=== PATIENT | female | born 1975 | race Caucasian/White ===

== ENCOUNTER → 2017-11-25 | Outpatient (REF) | payer BC, OTHER ==
[2017-11-25 15:10] LABS: INFLUENZA A AMPLIFICATION POSITIVE (NEGATIVE); INFLUENZA B AMPLIFICATION NEGATIVE (NEGATIVE); RSV AMPLIFICATION NEGATIVE (NEGATIVE)
== END ==
LOC: M LAB REF 14:09
DX: Z11.59 Encounter for screening for other viral diseases (principal)
CPT/HCPCS: 87631

== ENCOUNTER → 2017-11-26 | Outpatient (REF) | payer BC, OTHER ==
[2017-11-29 00:06] LABS: TISSUE TRANSGLUTAMINASE IgA <2 U/mL (0-3)
[2017-11-29 00:06] LABS: ENDOMYSIAL ABY IgA Negative (Negative)
== END ==
LOC: M LAB REF 17:50
DX: R19.7 Diarrhea, unspecified (principal)
CPT/HCPCS: 86255

== ENCOUNTER → 2017-12-22 | Outpatient (REF) | payer OTHER ==
[2017-12-22 13:05] LABS: SLIDE REVIEW Report; SOURCE PERIPHERAL SMEAR
[2017-12-22 13:07] LABS: REASON FOR REVIEW OTHER
== END ==
LOC: M LAB REF 12:08
DX: D72.819 Decreased white blood cell count, unspecified (principal)

== ENCOUNTER 2017-12-24 11:05 | Day surgery (SDC) | payer BC, OTHER ==
[~2017-12-24 11:05] MED LIST: LIDOCAINE 2% MDV 20 ML VIAL As Ordered; PROPOFOL 200 MG/20 ML VIAL As Ordered
[2017-12-24] MEDS: NS 1,000 ML IV (11:37)
[2017-12-24] MEDS ORDERED: PROPOFOL 200 MG/20 ML VIAL As Ordered ×2 (12:43→12:45)
== END 2017-12-24 13:36 | disposition home or self-care (01) ==
LOC: M OPP 11:05
DX: Z12.11 Encounter for screening for malignant neoplasm of colon (principal); Z80.0 Family history of malignant neoplasm of digestive organs; Z83.71 Family history of colonic polyps; K63.89 Other specified diseases of intestine; D72.818 Other decreased white blood cell count; F32.9 Major depressive disorder, single episode, unspecified; R06.02 Shortness of breath; Z88.0 Allergy status to penicillin; Z88.3 Allergy status to other anti-infective agents
CPT/HCPCS: 45380

== ENCOUNTER → 2019-05-23 | Outpatient (REF) | payer OTHER ==
[2019-05-23 13:51] LABS: AMORPHOUS SEDIMENT MODERATE (NEGATIVE); APPEARANCE, URINE CLOUDY (CLEAR); BACTERIA, URINE AUTO 1+ (NEGATIVE); BILIRUBIN, URINE AUTO NEGATIVE (NEGATIVE); BLOOD, URINE BLOOD 3+ (NEGATIVE); COLOR, URINE YELLOW (YELLOW); GLUCOSE, URINE (UA) AUTO NEGATIVE (NEGATIVE); KETONE, URINE AUTO NEGATIVE (NEGATIVE); LEUKOCYTE ESTERASE, URINE AUTO 3+ (NEGATIVE); MUCUS, URINE SMALL (NEGATIVE); NITRITE, URINE AUTO NEGATIVE (NEGATIVE); PROTEIN, URINE AUTO 1+ mg/dL (NEGATIVE); RBC, URINE AUTO 66 /HPF (0-3); SPECIFIC GRAVITY URINE AUTO 1.015 (1.002-1.035); SQUAMOUS EPITHELIAL CELL UR AU 2 /HPF (0-6); TRANSITIONAL EPITHELIAL AUTO 2 /HPF; UROBILINOGEN, URINE AUTO 0.2 mg/dL (0.0-2.0); WBC, URINE AUTO TNTC /HPF (0-3)
== END ==
LOC: M LAB REF 12:52
PROVIDERS: ATTEND Physician Assistant
DX: N39.0 Urinary tract infection, site not specified (principal)

== ENCOUNTER → 2020-06-25 | Outpatient (REF) | payer OTHER | LOC: M LAB REF 11:14 | PROVIDERS: ATTEND Internal Medicine | DX: R19.7 Diarrhea, unspecified (principal) ==

== ENCOUNTER → 2020-07-25 | Outpatient (CLI) | payer BC ==
--- NOTE | 2020-07-25 09:28 | REPMRS ---
Patient History The patient states she had a clinical breast exam in June 2020. Family history of colorectal cancer at age 56 in mother. Took hormonal contraceptives beginning at age 20. 3D TOMOSYNTHESIS WAS PERFORMED. [facility] [address] lifetime risk for breast cancer is 9.2%. Peter burkett Digital Woman Screen Mammo: July 25, 2020 - Exam #: [id number] Bilateral CC and MLO view(s) were taken. Technologist: Lou Brooks, RT No prior studies available for comparison. FINDINGS: The breast tissue is extremely dense which could obscure a lesion on mammography. There is a moderate amount of residual fibroglandular tissue which is fairly symmetric. There is no dominant mass, areas of architectural distortion, or clustered microcalcification typical of malignancy. Bilateral breast implants are grossly intact. Assessment: BI-RADS/ACR category 1 mammogram. Negative Mammogram. Recommendation Routine screening mammogram in 1 year (for women over age 40). This mammogram was interpreted with the aid of an FDA-approved computer-aided dectection system. Electronically Signed By: Ramu Neri MD 07/25/20 0928
== END ==
LOC: M WHC 07:36
PROVIDERS: ATTEND Internal Medicine
DX: Z12.31 Encounter for screening mammogram for malignant neoplasm of breast (principal); Z80.0 Family history of malignant neoplasm of digestive organs; Z98.82 Breast implant status

== ENCOUNTER → 2020-11-10 | Outpatient (CLI) | payer OTHER ==
[~2020-11-10] MED LIST changes: +BLAC1CAP2 PO; -LIDOCAINE 2% MDV 20 ML VIAL As Ordered; +PROBCAP14 PO; -PROPOFOL 200 MG/20 ML VIAL As Ordered; +VITMTA PO
== END ==
LOC: M LABSMTC 08:28
PROVIDERS: ATTEND Anesthesiology
DX: Z01.812 Encounter for preprocedural laboratory examination (principal); Z20.822 Contact with and (suspected) exposure to COVID-19

== ENCOUNTER 2020-11-15 10:11 | Day surgery (SDC) | payer BC, OTHER ==
[~2020-11-15] VITALS: Ht 172.7 cm; Wt 75.7 kg
[~2020-11-15 10:11] MED LIST changes: +KETOROLAC 60MG 2ML VIAL As Ordered ONE; +LIDOCAINE 2% 100MG/5ML SDV (FOR ANES.) As Ordered ONE; +LR 1,000 ML IV ONE; +MIDAZOLAM INJ 2MG/2ML VIAL (J2250 PER 1MG) As Ordered ONE; +ONDANSETRON 4MG/2ML VIAL As Ordered ONE; +dexameTHASONE 4 MG/ML 1ML VIAL (J1100 PER 1MG) As Ordered ONE; +fentaNYL 100 MCG/2 ML INJECTION (J3010) As Ordered ONE; +propofoL 200 MG/20 ML VIAL As Ordered ONE
--- OUTSIDE RECORDS SUMMARY | 2020-11-15 10:16 | CCD | Continuity of Care Document ---
Author Padmini Rodriguez MD Organization Unknown Address [address] [place] [address] Phone [phone] Care Team Providers Care Court Collections Officer Name Role Phone Carole Jules Unavailable Problems Description No Information Available Social History Type Date Description Comments Sex Unknown Tobacco Use Start: Unknown Never Smoked Cigarettes Smoking Status Reviewed: 10/23/20 Never Smoked Cigarettes ETOH Use Non-smoker, Occasional Drinker, Non-drug User Tobacco Use Start: Unknown Patient has never smoked Exercise Type/Frequency Does not exercise Allergies, Adverse Reactions, Alerts Active Allergies Reaction Severity Comments Date Augmentin 08/13/2020 Medications Description No Active Medications Immunizations Description No Information Available Vital Signs Date Vital Result Comment 08/13/2020 6:48am BP Systolic 98 mmHg BP Diastolic 62 mmHg Height 67.25 inches 5'7.25" Weight 175.00 lb BMI (Body Mass Index) 27.2 kg/m2 BSA (Body Surface Area) 1.92 m2 Results Test Acquired Date Facility Test Result H/L Range Note Gynecologic Biopsy 09/18/2020 [facility] Gynecologic Biopsy See Results 1 Gynecologic Biopsy SEE IMAGE 1 SPECIME N PART A. Endometrial CLINICAL HX-------- N92.1 Excessive and frequent menstruation with irregular cycle FINAL DIAGNOSIS---- A. Endometrium, biopsy: - Benign proliferative endometrium with glandular and stromal breakdown. - See comment. DIAGNOSIS COMMENT-- A. This endometrial pattern is sometimes seen with anovulatory cycles or with unopposed estrogenic stimulation. Clinical correlation is needed. MICRO DIAGNOSIS---- A. The stain quality is adequate. The microscopic findings are reflected in the diagnosis. GROSS DESCRIPTION-- A. Received in formalin; Designated: "Endometrial (per requisition)" Inventory: Ehrnandez tissue, clotted blood Aggregate dimensions: 2.2 x 1.5 x 0.3 cm The specimen is submitted entirely as (A1). Procedures Date Code Description Status 09/18/2020 58125 Injection, Anesthetic Agent,Para cervical Block Completed 09/18/2020 42313 Hysteroscopy, With Biopsy With/O r Without D&C Completed Medical Devices Description No Information Available Encounters Type Date Location Provider Dx Diagnosis Office Visit 10/23/2020 8:45a [facility] foil operator Mikaela Rooney MD N9 2.1 Excessive and frequent menstruation with irregular cycle N94.4 Primary dysmenorrhea Office Visit 10/22/2020 11:45a [facility] foil operator Mikaela Rooney MD N9 2.1 Excessive and frequent menstruation with irregular cycle N94.4 Primary dysmenorrhea Office Visit 08/13/2020 10:30a [facility] foil operator Mikaela Rooney MD N9 2.1 Excessive and frequent menstruation with irregular cycle N94.4 Primary dysmenorrhea R93.89 Abnormal findings on dx imag ing of ot body structures Z87.410 Personal history of cervical dysplasia Assessments Date Code Description Provider 10/23/2020 N92.1 Excessive and frequent menstruat ion with irregular cycle Mikaela Rooney MD 10/23/2020 N94.4 Primary dysmenorrhea Shelby Rooney MD 10/22/2020 N92.1 Excessive and frequent menstruat ion with irregular cycle Mikaela Rooney MD 10/22/2020 N94.4 Primary dysmenorrhea Shelby Rooney MD 09/18/2020 N92.1 Excessive and frequent menstruat ion with irregular cycle Mikaela Rooney MD 09/18/2020 N94.4 Primary dysmenorrhea Shelby Rooney MD 09/18/2020 R93.89 Abnormal findings on diagnostic imaging of other specified body structures Mikaela Rooney MD 08/13/2020 N92.1 Excessive and frequent menstruat ion with irregular cycle Mikaela Rooney MD 08/13/2020 N94.4 Primary dysmenorrhea Shelby Rooney MD 08/13/2020 R93.89 Abnormal findings on diagnostic imaging of other specified body structures Mikaela Rooney MD 08/13/2020 Z87.410 Personal history of cervical dys plasia Mikaela Rooney MD Plan of Treatment Future Appointment(s):* 12/10/2020 2:30 pm - Mikaela Rooney MD at [facility] foil operator * 11/15/2020 9:30 am - Mikaela Rooney MD at [facility] Or 10/23/2020 - Mikaela Rooney MD* N92.1 Excessive and frequent menstruation with irregular cycle * N94.4 Primary dysmenorrhea Functional Status Description No Information Available Mental Status Description No Information Available Referrals Description No Information Available
--- OUTSIDE RECORDS SUMMARY | 2020-11-15 10:16 | CCD | Continuity of Care Document ---
Author Author Padmini SANDOVAL Organization Unknown Address [address] [address] Phone [phone] Care Team Providers Care Fixer Supervisor Name Role Phone Carole Sandoval DO AUTM Unavailable Problems Description No Information Available Social History Type Date Description Comments Sex Unknown ETOH Use Rarely consumes alcohol Tobacco Use Start: Unknown Patient has never smoked Allergies, Adverse Reactions, Alerts Active Allergies Reaction Severity Comments Date Augmentin abd cramping, blood in her s tool 11/26/2017 Medications Description No Active Medications Immunizations Description No Information Available Vital Signs Date Vital Result Comment 08/31/2020 11:20am BP Systolic 110 mmHg BP Diastolic 60 mmHg Heart Rate 59 /min Height 67.75 inches 5'7.75" Weight 164.00 lb O2 % BldC Oximetry 99 % RM Air BMI (Body Mass Index) 25.1 kg/m2 06/25/2020 12:56pm BP Systolic 98 mmHg BP Diastolic 62 mmHg Heart Rate 56 /min Height 67.75 inches 5'7.75" Weight 164.00 lb O2 % BldC Oximetry 99 % BMI (Body Mass Index) 25.1 kg/m2 Results Test Acquired Date Facility Test Result H/L Range Note Pap W/RFX High Risk HPV 06/25/2020 [facility] [place] Diagnosis: See Comment: 1 Specimen adequacy: See Comment: 2 Clinician provided Icd10: See Comment: 3 Performed by: See Comment: 4 . . Note: See Comment: 5 Test Methodology: See Comment: 6 . See Comment: 7 Laboratory test finding 06/25/2020 [facility] [place] PDF [id number] SEE IMAGE Comprehensive Chem Profile 06/25/2020 [facility] Tank Builder Supervisor: [place] [address] [phone] Glucose 74 mg/dL 74 - 99 8 BUN 9 mg/dL 7 - 18 Creatinine 0.9 mg/dL 0.6 - 1.3 Sodium 145 mEq/L 136 - 145 Potassium 3.7 mEq/L 3.5 - 5.1 Chloride 106 mEq/L 98 - 107 Carbon Dioxide 30 mEq/L 21 - 32 Calcium 8.6 mg/dL 8.5 - 10.1 Alk. Phosphatase 70 mg/dL 46 - 116 Total Bilirubin 0.5 mg/dL 0.2 - 1.0 Ast (Sgot) 18 U/L 15 - 37 Alt (SGPT) 17 U/L 12 - 78 Albumin 3.7 g/dL 3.4 - 5.0 Total Protein 6.7 g/dL 6.4 - 8.2 A/G Ratio 1.23 CALC 1.00 - 1.90 GFR >= 60 mL/min >60 GFR >= 60 mL/min >60 9 Complete Blood Count 06/25/2020 [facility] Tank Builder Supervisor: Dr Chase Nunn [place], [place] [id number] [phone] WBC 4.5 x10*3/UL 4.1 - 10.9 RBC 3.97 x10*6/UL Low 4.20 - 6.30 Hemoglobin 12.5 g/dL 12.0 - 18.0 Hematocrit 36.5 % Low 37.0 - 51.0 MCV 91.9 fL 80.0 - 97.0 MCH 31.5 pg 26.0 - 32.0 MCHC 34.3 g/dL 31.0 - 38.0 RDW 12.3 % 11.6 - 13.7 PLT 212 x10*3/UL 140 - 440 MPV 8.0 FL 7.8 - 11.0 Lymph % 37.5 % 10.0 - 58.5 Mid % 8.6 % 1.7 - 9.3 Neut % 53.9 % 37.0 - 92.0 Lymph # 1.7 x10*3/UL 0.6 - 4.1 Mid # 0.4 x10*3/UL 0.1 - 0.6 Neut # 2.4 x10*3/UL 2.0 - 7.8 Laboratory test finding 06/25/2020 [facility] Tank Builder Supervisor: [place] [address] [phone] Thyroid Stimulating Hormone 1.45 uIU/mL 0.3 6 - 3.74 Lipid Profile 06/25/2020 [facility] Tank Builder Supervisor: Dr Chase [place], [place] [address] [phone] Cholesterol 120 mg/dL Low 131 - 200 Triglycerides 55 mg/dL 30 - 150 HDL Cholesterol 57 mg/dL 35 - 60 LDL (Calculated) 52 CALC 50 - 159 Laboratory test finding 06/25/2020 [facility] [address] [place], [place] [address] [phone] Immunoglobulin A 239.0 mg/dL Normal 70-400 Tissue Transglutaminase IgA <2 U/mL Normal 0-3 10 1 NEGATIVE FOR INTRAEPITHELIAL LESION OR MALIGNANCY. 2 Satisfactory for evaluation. Endocervical and/or squamous metaplastic cells (endocervical component) are present. 3 Z01.419 4 Zoey Perales Cytotechnojai dutta (ASCP) 5 The Pap smear is a screening test designed to aid in the detection of premalignant and malignant conditions of the uterine cervix. It is not a diagnostic procedure and should not be used as the sole means of detecting cervical cancer. Both false-positive and false-negative reports do occur. 6 This liquid based ThinPrep(R ) pap test was screened with the use of an image guided system. 7 The HPV DNA reflex criteria were not met with this specimen result therefore, no HPV testing was performed. 8 100-125 mg/dL PRE-DIABET ES/FASTING >126 mg/dL DIABETES/FASTING 9 CHRONIC KIDNEY DISEASE STAGI NG PER NKF STAGE I & II GFR >= 60 NORMAL TO MILDLY DECREASED STAGE III GFR 30-59 MODERATELY DECREASED STAGE IV GFR 15-29 SEVERELY DECREASED STAGE V GFR <15 VERY LITTLE GFR LEFT ESRD GFR <15 ON SHARED SERVICES MANAGER 10 Negative 0 - 3 Weak Positive 4 - 10 Positive >10 . Tissue Transglutaminase (tTG) has been identified as the endomysial antigen. Studies have demonstr- ated that endomysial IgA antibodies have over 99% specificity for gluten sensitive enteropathy. Performed at: - [facility] [id number] Tank Builder Supervisor: Caroline Jack MD, Phone: [phone] Procedures Date Code Description Status 07/25/2020 [id number] Mammogram Completed 12/24/2017 [id number] Colonoscopy Completed Medical Devices Description No Information Available Encounters Type Date Location Provider Dx Diagnosis Office Visit 08/31/2020 11:20a [facility] N93.8 Other specified abnormal uterine and vaginal bleeding Office Visit 06/25/2020 1:00p [facility], Z01.419 Encntr for space controller exam (general) (routine) w/o abn findings Z12.72 Encounter for screening for malignant neoplasm of vagina Z80.0 Family history of malignant neoplasm of digestive organs R19.7 Diarrhea, unspecified Z13.220 Encounter for screening for lipoid disorders N93.8 Other specified abnormal [place] rine and vaginal bleeding Assessments Date Code Description Provider 08/31/2020 N93.8 Other specified abnormal uterine and vaginal bleeding Carole Sandoval DO 06/25/2020 Z01.419 Encounter for gyneco logical examination (general) (routine) without abnormal findings Carole Sandoval DO 06/25/2020 Z12.72 Encounter for screening for yolanda gnant neoplasm of vagina Carole Sandoval,DO 06/25/2020 Z80.0 Family history of malignant neop lasm of digestive organs Carole Sandoval DO 06/25/2020 R19.7 Diarrhea, unspecified Carole Shepherd s,DO 06/25/2020 Z13.220 Encounter for screening for lipo id disorders Carole Sandoval DO 06/25/2020 N93.8 Other specified abnormal uterine and vaginal bleeding Carole Sandoval DO Plan of Treatment Future Appointment(s):* 09/03/2021 9:40 am - Carole Sandoval DO at [facility] 08/31/2020 - Carole Sandoval DO* N93.8 Other specified abnormal uterine and vaginal bleeding * All * Comments:* I will see the patient back for a follow up visit as scheduled. Will get the results of the endometrial biopsy once it is performed Functional Status Description No Information Available Mental Status Description No Information Available Referrals Refer to Dr Reason for Referral Status Appt Date Mikaela Rooney MD HOSPICE ADMINISTRATOR CONSULT FOR MENORRHAGIA, ABNORMAL PELVIC U/S Closed 08/13/2020 [facility] [address] [place], [place] [address] [phone]
--- OUTSIDE RECORDS SUMMARY | 2020-11-15 10:16 | CCD | Continuity of Care Document ---
Author Padmini Rodriguez MD Organization Unknown Address [address] [place] [address] Phone [phone] Care Team Providers Care Soybean Specialties Cook Name Role Phone Carole Jules Unavailable Problems Description No Information Available Social History Type Date Description Comments Sex Unknown Tobacco Use Start: Unknown Never Smoked Cigarettes Smoking Status Reviewed: 10/22/20 Never Smoked Cigarettes ETOH Use Non-smoker, Occasional [...] in formalin; Designated: "Endometrial (per requisition)" Inventory: Hernandez tissue, clotted blood Aggregate dimensions: 2.2 x 1.5 x 0.3 cm The specimen is submitted entirely as (A1). Procedures Date Code Description Status 09/18/2020 27966 Injection, Anesthetic Agent,Para cervical Block Completed 09/18/2020 07657 Hysteroscopy, With Biopsy With/O r Without D&C Completed Medical Devices Description No Information Available Encounters Type Date Location Provider Dx Diagnosis Office Visit 10/22/2020 11:45a [facility] e d tech Mikaela Rooney MD N9 2.1 Excessive and frequent menstruation with irregular cycle N94.4 Primary dysmenorrhea Office Visit 08/13/2020 10:30a [facility] e d tech Mikaela Rooney MD N9 2.1 Excessive and frequent menstruation with irregular cycle N94.4 Primary dysmenorrhea R93.89 Abnormal findings on dx imag ing of [facility] body structures Z87.410 Personal history of cervical dysplasia Assessments Date Code Description Provider 10/22/2020 N92.1 Excessive and frequent menstruat ion [...] Rooney MD Plan of Treatment Future Appointment(s):* 10/23/2020 8:45 am - Mikaela Rooney MD at [facility] e d tech * 01/01/2021 10:45 am - Mikaela Rooney MD at [facility] e d tech * 12/10/2020 2:30 pm - Mikaela Rooney MD at [facility] e d tech * 11/15/2020 9:30 am - Mikaela Rooney MD at [facility] [place] 10/22/2020 - Mikaela Rooney MD* N92.1 Excessive and frequent menstruation with irregular cycle * N94.4 Primary dysmenorrhea Functional Status Description No Information Available Mental Status Description No Information Available Referrals Description No Information Available
--- OUTSIDE RECORDS SUMMARY | 2020-11-15 10:16 | CCD | Continuity of Care Document ---
Author Padmini Rodriguez MD Organization Unknown Address [address] [place] [address] Phone [phone] Care Team Providers Care Arch Support Maker Name Role Phone Carole Jules Unavailable Problems [...] (A1). Procedures Date Code Description Status 09/18/2020 02959 Injection, Anesthetic Agent,Para cervical Block Completed 09/18/2020 48737 Hysteroscopy, With Biopsy With/O r Without D&C Completed Medical Devices Description No Information Available Encounters Type Date Location Provider Dx Diagnosis Office Visit 10/23/2020 8:45a [facility] extruding press operator Mikaela Rooney MD N9 2.1 Excessive and frequent menstruation with irregular cycle N94.4 Primary dysmenorrhea Office Visit 10/22/2020 11:45a [facility] extruding press operator Mikaela Rooney MD N9 2.1 Excessive and frequent menstruation with irregular cycle N94.4 Primary dysmenorrhea Office Visit 08/13/2020 10:30a [facility] extruding press operator Mikaela Rooney MD N9 2.1 Excessive [...] 2:30 pm - Mikaela Rooney MD at [facility] extruding press operator * 11/15/2020 9:30 am - Mikaela Rooney MD at [facility] [place] 10/23/2020 - Mikaela Rooney MD* N92.1 Excessive and frequent menstruation with irregular cycle * N94.4 Primary dysmenorrhea Functional Status Description No Information Available Mental Status Description No Information Available Referrals Description No Information Available
--- OUTSIDE RECORDS SUMMARY | 2020-11-15 10:16 | CCD | Continuity of Care Document ---
Author Author Padmini PATTON MD Organization Unknown Address [address] [place] [address] Phone [phone] Care Team Providers Care Extension Work Instructor Name Role Phone Carole Jules Unavailable Problems Description No Information Available Social History Type Date Description Comments Sex Unknown Tobacco Use Start: Unknown Never Smoked Cigarettes Smoking Status Reviewed: 08/13/20 Never Smoked Cigarettes ETOH Use Non-smoker, Occasional [...] BSA (Body Surface Area) 1.92 m2 Results Description No Information Available Procedures Date Code Description Status 09/18/2020 60912 Injection, Anesthetic Agent,Para cervical Block Completed 09/18/2020 14903 Hysteroscopy, With Biopsy With/O r Without D&C Completed Medical Devices Description No Information Available Encounters Type Date Location Provider Dx Diagnosis Office Visit 08/13/2020 10:30a [facility] spanish tutor Mikaela Patton MD N9 2.1 Excessive and frequent menstruation with irregular cycle N94.4 Primary dysmenorrhea R93.89 Abnormal findings on dx imag ing of oth body structures Z87.410 Personal history of cervical dysplasia Assessments Date Code Description Provider 09/18/2020 N92.1 Excessive and frequent menstruat ion with irregular cycle Mikaela Patton MD 09/18/2020 N94.4 Primary dysmenorrhea Shelby Patton MD 09/18/2020 R93.89 Abnormal findings on diagnostic imaging of other specified body structures Mikaela Patton MD 08/13/2020 N92.1 Excessive and frequent menstruat ion with irregular cycle Mikaela Patton MD 08/13/2020 N94.4 Primary dysmenorrhea Shelby Patton MD 08/13/2020 R93.89 Abnormal findings on diagnostic imaging of other specified body structures Mikaela Patton MD 08/13/2020 Z87.410 Personal history of cervical dys plasia Mikaela Patton MD Plan of Treatment Future Appointment(s):* 10/22/2020 11:45 am - Mikaela Patton MD at [facility] spanish tutor 08/13/2020 - Mikaela Patton MD* N92.1 Excessive and frequent menstruation with irregular cycle * N94.4 Primary dysmenorrhea * R93.89 Abnormal findings on diagnostic imaging of other specified body structures * Z87.410 Personal history of cervical dysplasia Functional Status Description No Information Available Mental Status Description No Information Available Referrals Description No Information Available
--- OUTSIDE RECORDS SUMMARY | 2020-11-15 10:16 | CCD | Continuity of Care Document ---
Author Author Padmini SANDOVAL Organization Unknown Address [address] [address] Phone [phone] Care Team Providers Care Sales Associate Key Holder Name Role Phone Carole Sandoval DO AUTM [...] Laboratory test finding 06/25/2020 [facility] [place] [id number] SEE IMAGE Comprehensive Chem Profile 06/25/2020 [facility] Locomotive Observer: [place] [address] [phone] Glucose 74 mg/dL 74 - 99 8 [...] mL/min >60 9 Complete Blood Count 06/25/2020 [facility] Locomotive Observer: Dr Chase Nunn [place], [place] [address] [phone] WBC 4.5 x10*3/UL 4.1 - 10.9 RBC [...] 2.0 - 7.8 Laboratory test finding 06/25/2020 [facility] Locomotive Observer: [place] [address] [phone] Thyroid Stimulating Hormone 1.45 uIU/mL 0.3 6 - 3.74 Lipid Profile 06/25/2020 [facility] Locomotive Observer: Dr Chase [place], [place] [address] [phone] Cholesterol 120 mg/dL Low 131 - 200 Triglycerides 55 mg/dL 30 - 150 HDL Cholesterol 57 mg/dL 35 - 60 LDL (Calculated) 52 CALC 50 - 159 Laboratory test finding 06/25/2020 [facility] [address] [place], [place] [id number] [phone] Immunoglobulin A 239.0 mg/dL Normal 70-400 Tissue [...] LITTLE GFR LEFT ESRD GFR <15 ON SEPTIC TANK INSTALLER 10 Negative 0 - 3 Weak Positive 4 - 10 Positive >10 . Tissue Transglutaminase (tTG) has been identified as the endomysial antigen. Studies have demonstr- ated that endomysial IgA antibodies have over 99% specificity for gluten sensitive enteropathy. Performed at: - [facility] [id number] Locomotive Observer: Caroline Jack MD, Phone: [phone] Procedures Date Code Description Status 07/25/2020 [id number] Mammogram Completed 12/24/2017 40300806 Colonoscopy Completed Medical Devices Description No Information Available Encounters Type Date Location Provider Dx Diagnosis Office Visit 06/25/2020 1:00p [facility] Carole ugalde, Z01.419 Encntr for brick baker exam (general) (routine) w/o abn findings Z12.72 Encounter for screening for malignant neoplasm of vagina Z80.0 Family history of malignant neoplasm of digestive organs R19.7 Diarrhea, unspecified Z13.220 Encounter for screening for lipoid disorders N93.8 Other specified abnormal [place] rine and vaginal bleeding Assessments Date Code Description Provider 06/25/2020 Z01.419 Encounter for gyneco logical examination (general) (routine) without abnormal findings Carole Sandoval DO 06/25/2020 Z12.72 Encounter for screening for yolanda gnant neoplasm of vagina Carole Sandoval, 06/25/2020 Z80.0 Family history of malignant neop lasm of digestive organs Carole Sandoval DO 06/25/2020 R19.7 Diarrhea, unspecified Carole Shepherd s,DO 06/25/2020 Z13.220 Encounter for screening for lipo id disorders Carole Sandoval DO 06/25/2020 N93.8 Other specified abnormal uterine and vaginal bleeding Carole Sandoval DO Plan of Treatment 06/25/2020 - Carole Sandoval DO* Z01.419 Encounter for gynecological examination (general) (routine) without abnormal findings * Z12.72 Encounter for screening for malignant neoplasm of vagina * Z80.0 Family history of malignant neoplasm of digestive organs * R19.7 Diarrhea, unspecified * Z13.220 Encounter for screening for lipoid disorders * N93.8 Other specified abnormal uterine and vaginal bleeding* Comments:* pelvic US has been ordered Functional Status Description No Information Available Mental Status Description No Information Available Referrals Refer to Dr Reason for Referral Status Appt Date Mikaela Rooney MD OUTSIDE RIGGER CONSULT FOR MENORRHAGIA, ABNORMAL PELVIC U/S Closed 08/13/2020 [facility] [address] [place], [place] [id number] [phone]
--- OUTSIDE RECORDS SUMMARY | 2020-11-15 10:16 | CCD | Continuity of Care Document ---
Author Padmini Rodriguez MD Organization Unknown Address [address] [place] [address] Phone [phone] Care Team Providers Care Director Workers Compensation Name Role Phone Carole Jules Unavailable Problems [...] (A1). Procedures Date Code Description Status 09/18/2020 60419 Injection, Anesthetic Agent,Para cervical Block Completed 09/18/2020 72698 Hysteroscopy, With Biopsy With/O r Without D&C Completed Medical Devices Description No Information Available Encounters Type Date Location Provider Dx Diagnosis Office Visit 08/13/2020 10:30a [facility] delivery professional Mikaela Rooney MD N9 2.1 Excessive and [...] Rooney MD Plan of Treatment Future Appointment(s):* 10/22/2020 11:45 am - Mikaela Rooney MD at [facility] delivery professional 08/13/2020 - Mikaela Rooney MD* N92.1 Excessive and frequent menstruation with irregular cycle * N94.4 Primary dysmenorrhea * R93.89 Abnormal findings on diagnostic imaging of other specified body structures * Z87.410 Personal history of cervical dysplasia Functional Status Description No Information Available Mental Status Description No Information Available Referrals Description No Information Available
--- OUTSIDE RECORDS SUMMARY | 2020-11-15 10:16 | CCD | Continuity of Care Document ---
Author Author Padmini PATTON MD Organization Unknown Address [address] [place] [address] Phone [phone] Care Team Providers Care Cake Maker Name Role Phone Carole Jules Unavailable [...] Available Procedures Date Code Description Status 09/18/2020 13053 Injection, Anesthetic Agent,Para cervical Block Completed 09/18/2020 37956 Hysteroscopy, With Biopsy With/O r Without D&C Completed Medical Devices Description No Information Available Encounters Type Date Location Provider Dx Diagnosis Office Visit 08/13/2020 10:30a [facility] die cut operator Mikaela Patton MD N9 2.1 Excessive and [...] 11:45 am - Mikaela Patton MD at [facility] die cut operator 08/13/2020 - Mikaela Patton MD* N92.1 Excessive and frequent menstruation with irregular cycle * N94.4 Primary dysmenorrhea * R93.89 Abnormal findings on diagnostic imaging of other specified body structures * Z87.410 Personal history of cervical dysplasia Functional Status Description No Information Available Mental Status Description No Information Available Referrals Description No Information Available
--- OUTSIDE RECORDS SUMMARY | 2020-11-15 10:16 | CCD | Continuity of Care Document ---
Author Author Padmini SANDOVAL Organization Unknown Address [address] [facility] [address] [place] [address] Phone [phone] Care Team Providers Care Taxonomy Teacher Name Role Phone Carole Sandoval DO AUT[facility] Unavailable Mikaela Rooney MD - [place] [facility] montessori paraprofessional [facility] [phone] Problems Description No Information Available Social History Type Date Description Comments Sex Unknown ETOH Use Rarely consumes alcohol Tobacco Use Start: Unknown Patient has never smoked Allergies, Adverse Reactions, Alerts Active Allergies Reaction Severity Comments Date Augmentin abd cramping, blood in her s tool 11/26/2017 Medications Description No Active Medications Immunizations Description No Information Available Vital Signs Date Vital Result Comment 11/08/2020 9:55am BP Systolic 110 mmHg BP Diastolic 60 mmHg Heart Rate 70 /min Height 67.75 inches 5'7.75" Weight 168.00 lb O2 % BldC Oximetry 98 % RM Air BMI (Body Mass Index) 25.7 kg/m2 08/31/2020 11:20am BP Systolic 110 mmHg BP Diastolic 60 mmHg Heart Rate 59 /min Height 67.75 inches 5'7.75" Weight 164.00 lb O2 % BldC Oximetry 99 % RM Air BMI (Body Mass Index) 25.1 kg/m2 Results [...] Laboratory test finding 06/25/2020 [facility] [place] PDF [id number] SEE IMAGE Comprehensive Chem Profile 06/25/2020 [facility] Travel Service Consultant: [place] [address] [phone] Glucose 74 mg/dL 74 - 99 8 [...] mL/min >60 9 Complete Blood Count 06/25/2020 [facility] Travel Service Consultant: Dr Chase Nunn [place], [place] [id number] [phone] WBC 4.5 x10*3/UL 4.1 - 10.9 RBC [...] 2.0 - 7.8 Laboratory test finding 06/25/2020 [facility] Travel Service Consultant: Dr Chase Del Angellogg [place], [place] [id number] [phone] Thyroid Stimulating Hormone 1.45 uIU/mL 0.3 6 - 3.74 Lipid Profile 06/25/2020 [facility] Travel Service Consultant: Dr Chase Nunn [place], [place] [id number] [phone] Cholesterol 120 mg/dL Low 131 - 200 Triglycerides 55 mg/dL 30 - 150 HDL Cholesterol 57 mg/dL 35 - 60 LDL (Calculated) 52 CALC 50 - 159 Laboratory test finding 06/25/2020 [facility] [address] [place] [address] [phone] Immunoglobulin A 239.0 mg/dL Normal 70-400 Tissue Transglutaminase IgA <2 U/mL Normal 0-3 10 1 NEGATIVE FOR INTRAEPITHELIAL LESION OR MALIGNANCY. 2 Satisfactory for evaluation. Endocervical and/or squamous metaplastic cells (endocervical component) are present. 3 Z01.419 4 Zoey Perales [employer] ogbilly (ASCP) 5 The Pap smear is a [...] LITTLE GFR LEFT ESRD GFR <15 ON LOCK TECHNICIAN 10 Negative 0 - 3 Weak Positive 4 - 10 Positive >10 . Tissue Transglutaminase (tTG) has been identified as the endomysial antigen. Studies have demonstr- ated that endomysial IgA antibodies have over 99% specificity for gluten sensitive enteropathy. Performed at: - [facility] [id number] Travel Service Consultant: Caroline Jack MD, Phone: [phone] Procedures Date Code Description Status 11/08/2020 39454 EKG/Interpretation & Report Comp leted 07/25/2020 [id number] Mammogram Completed 12/24/2017 [id number] Colonoscopy Completed Medical Devices Description No Information Available Encounters Type Date Location Provider Dx Diagnosis Office Visit 11/08/2020 10:00a [facility] PTong ugalde,DO Z01.810 Encounter for preprocedural cardiovascul ar examination N93.8 Other specified abnormal eyak rine and vaginal bleeding Z80.0 Family history of malignant neoplasm of digestive organs Office Visit 08/31/2020 11:20a [facility] ,DO N93.8 Other specified abnormal uterine and vaginal bleeding Office Visit 06/25/2020 1:00p [facility],DO Z01.419 Encntr for disability aide exam (general) (routine) w/o abn findings Z12.72 Encounter for screening for malignant neoplasm of vagina Z80.0 Family history of malignant neoplasm of digestive organs R19.7 Diarrhea, unspecified Z13.220 Encounter for screening for lipoid disorders N93.8 Other specified abnormal eyak rine and vaginal bleeding Assessments Date Code Description Provider 11/08/2020 Z01.810 Encounter for preprocedural card iovascular examination Carole Sandoval,DO 11/08/2020 N93.8 Other specified abnormal uterine and vaginal bleeding Carole Sandoval,DO 11/08/2020 Z80.0 Family history of malignant neop lasm of digestive organs Carole Sandoval,DO 08/31/2020 N93.8 Other specified abnormal uterine and vaginal bleeding Carole Sandoval,DO 06/25/2020 Z01.419 Encounter for gyneco logical examination (general) (routine) without abnormal findings Carole Sandoval,DO 06/25/2020 Z12.72 Encounter for screening for yolanda gnant neoplasm of vagina Carole Sandoval,DO 06/25/2020 Z80.0 Family history of malignant neop lasm of digestive organs Carole Sandoval,DO 06/25/2020 R19.7 Diarrhea, unspecified Carole beltrán DO 06/25/2020 Z13.220 Encounter for screening for lipo id disorders Carole Sandoval DO 06/25/2020 N93.8 Other specified abnormal uterine and vaginal bleeding Carole Sandoval DO Plan of Treatment Future Appointment(s):* 09/03/2021 9:40 am - Carole Sandoval DO at [facility] 08/31/2020 - Carole Sandoval DO* N93.8 Other specified abnormal uterine and vaginal bleeding * All * Comments:* I will see the patient back for a follow up visit as scheduled. Will get the results of the endometrial biopsy once it is performed Functional Status Description No Information Available Mental Status Description No Information Available Referrals Refer to Reason for Referral Status Appt Date Mikaela Rooney MD TRANSMITTER SUPERVISOR CONSULT FOR MENORRHAGIA, ABNORMAL PELVIC U/S Closed 08/13/2020 [facility] [address] [place], [place] [address] [phone]
--- OUTSIDE RECORDS SUMMARY | 2020-11-15 10:17 | CCD ---
Author Author [facility] Address Unknown Phone Unavailable Care Team Providers Care Airport Guide Name Role Phone Dhara, Carole DO Unavailable Unavailable Dhara, Carole DO Unavailable Unavailable Dhara, Carole DO Unavailable Unavailable Dhara, Carole DO Unavailable Unavailable Dhara, Carole DO Unavailable Unavailable Dhara, Carole DO Unavailable Unavailable Dhara, Carole DO Unavailable Unavailable Dhara, Carole DO Unavailable Unavailable Dhara, Carole DO Unavailable Unavailable Dhara, Carole DO Unavailable Unavailable Dhara, Craole DO Unavailable Unavailable Dhara, Carole DO Unavailable Unavailable Dhara, Carole DO Unavailable Unavailable Dhara, Carole DO Unavailable Unavailable Dhara, Carole DO Unavailable Unavailable Dhara, Carole DO Unavailable Unavailable Dhara, Carole DO Unavailable Unavailable Dhara, Carole DO Unavailable Unavailable Dhara, Carole DO Unavailable Unavailable Dhara, Carole DO Unavailable Unavailable Dhara, Carole DO Unavailable Unavailable Dhara, Carole DO Unavailable Unavailable Dhara, Carole DO Unavailable Unavailable Dhara, Carole DO Unavailable Unavailable Dhara, Carole DO Unavailable Unavailable Dhara, Carole DO Unavailable Unavailable Dhara, Carole DO Unavailable Unavailable Dhara, Carole DO Unavailable Unavailable Dhara, Carole DO Unavailable Unavailable Dhara, Carole DO Unavailable Unavailable Dhara, Carole DO Unavailable Unavailable Dhara, Carole DO Unavailable Unavailable Dhara, Carole DO Unavailable Unavailable Dhara, Carole DO Unavailable Unavailable Dhara, Carole DO Unavailable Unavailable Dhara, Carole DO Unavailable Unavailable Dhara, Carole DO Unavailable Unavailable Dhara, Carole DO Unavailable Unavailable Dhara, Carole DO Unavailable Unavailable Dhara, Carole DO Unavailable Unavailable Dhara, Carole DO Unavailable Unavailable Dhara, Carole DO Unavailable Unavailable Dhara, Carole DO Unavailable Unavailable Dhara, Carole DO Unavailable Unavailable Dhara, Carole DO Unavailable Unavailable Dhara, Carole DO Unavailable Unavailable Dhara, Carole DO Unavailable Unavailable Dhara, Carole DO Unavailable Unavailable Dhara, Carole DO Unavailable Unavailable Dhara, Carole DO Unavailable Unavailable Dhara, Carole DO Unavailable Unavailable Dhara, Carole DO Unavailable Unavailable Dhara, Carole DO Unavailable Unavailable Dhara, Carole DO Unavailable Unavailable Dhara, Carole DO Unavailable Unavailable Dhara, Carole DO Unavailable Unavailable Dhara, Carole DO Unavailable Unavailable Dhara, Carole DO Unavailable Unavailable Dhara, Carole DO Unavailable Unavailable Dhara, Carole DO Unavailable Unavailable Dhara, Carole DO Unavailable Unavailable Dhara, Carole DO Unavailable Unavailable Dhara, Carole DO Unavailable Unavailable Dhara, Carole DO Unavailable Unavailable Dhara, Carole DO Unavailable Unavailable Dhara, Carole DO Unavailable Unavailable Dhara, Carole DO Unavailable Unavailable Dhara, Carole DO Unavailable Unavailable Dhara, Carole DO Unavailable Unavailable Dhara, Carole DO Unavailable Unavailable Dhara, Carole DO Unavailable Unavailable Dhara, Carole DO Unavailable Unavailable PATTON, Chasidy MARTINEZ MD Unavailable Unavailable PATTON, Chasidy MARTINEZ MD Unavailable Unavailable PATTON, Chasidy MARTINEZ MD Unavailable Unavailable PATTON, Chasidy MARTINEZ MD Unavailable Unavailable PATTON, Chasidy MARTINEZ MD Unavailable Unavailable PATTON, Chasidy MARTINEZ MD Unavailable Unavailable PATTON, Chasidy MARTINEZ MD Unavailable Unavailable PATTON, Chasidy MARTINEZ MD Unavailable Unavailable PATTON, L JUAN MD Unavailable Unavailable PATTON, L JUAN MD Unavailable Unavailable PATTON, L JUAN MD Unavailable Unavailable PATTON, L JUAN MD Unavailable Unavailable PATTON, L JUAN MD Unavailable Unavailable PATTON, L JUAN MD Unavailable Unavailable PATTON, L JUAN MD Unavailable Unavailable PATTON, L JUAN MD Unavailable Unavailable PATTON, L JUAN MD Unavailable Unavailable PATTON, L JUAN MD Unavailable Unavailable PATTON, L JUAN MD Unavailable Unavailable PATTON, L JUAN MD Unavailable Unavailable PATTON, L JUAN MD Unavailable Unavailable PATTON, L JUAN MD Unavailable Unavailable PATTON, L JUAN MD Unavailable Unavailable PATTON, L JUAN MD Unavailable Unavailable PATTON, L JUAN MD Unavailable Unavailable PATTON, L JUAN MD Unavailable Unavailable PATTON, L JUAN MD Unavailable Unavailable PATTON, L JUAN MD Unavailable Unavailable PATTON, L JUAN MD Unavailable Unavailable PATTON, L JUAN MD Unavailable Unavailable PATTON, L JUAN MD Unavailable Unavailable PATTON, L JUAN MD Unavailable Unavailable PATTON, L JUAN MD Unavailable Unavailable PATTON, L JUAN MD Unavailable Unavailable PATTON, L JUAN MD Unavailable Unavailable PATTON, L JUAN MD Unavailable Unavailable PATTON, L JUAN MD Unavailable Unavailable PATTON, L JUAN MD Unavailable Unavailable PATTON, L JUAN MD Unavailable Unavailable PATTON, L JUAN MD Unavailable Unavailable PATTON, L JUAN MD Unavailable Unavailable PATTON, L JUNA MD Unavailable Unavailable Re-disclosure Warning The records that you are about to access may contain information from federally-assisted alcohol or drug abuse programs. If such information is present, then the following federally mandated warning applies: This information has been disclosed to you from records protected by federal confidentiality rules (42 CFR part 2). The federal rules prohibit you from making any further disclosure of this information unless further disclosure is expressly permitted by the written consent of the person to whom it pertains or as otherwise permitted by 42 CFR part 2. A general authorization for the release of medical or other information is NOT sufficient for this purpose. The Federal rules restrict any use of the information to criminally investigate or prosecute any alcohol or drug abuse patient.The records that you are about to access may contain highly sensitive health information, the redisclosure of which is protected by Article 27-F of the [place] State Public Health law. If you continue you may have access to information: Regarding HIV / AIDS; Provided by facilities licensed or operated by the [facility] Office of Mental Health; or Provided by the [facility] Office for People With Developmental Disabilities. If such information is present, then the following [facility] mandated warning applies: This information has been disclosed to you from confidential records which are protected by state law. State law prohibits you from making any further disclosure of this information without the specific written consent of the person to whom it pertains, or as otherwise permitted by law. Any unauthorized further disclosure in violation of state law may result in a fine or halfway sentence or both. A general authorization for the release of medical or other information is NOT sufficient authorization for further disc losure. Family History Family Member Name Family Member Gender Family Member Status Date o f Status Description Data Source(s) Unknown Unknown Problem [facility] ([facility]) Encounters Encounter Providers Location Date Indications Data Source(s ) Outpatient Attender: Carole Weinberg 11/08 09:00:00 AM EST [facility] ([facility] ) Outpatient Attender: JUAN PATTON MD [employer] [employer] 07:45:00 AM EST [facility] ([facility]) Outpatient Attender: JUAN [facility] 10:45:00 AM EST [facility] ([facility]) Outpatient Attender: Carole Weinberg 08/31 10:20:00 AM EST [facility] ([facility] ) Outpatient Attender: JUAN [facility] 10:30:00 AM EDT [facility] ([facility]) Outpatient Attender: Carole Weinberg 06/25 01:00:00 PM EDT [facility] ([facility] ) Insurance Providers Payer name Policy type / Coverage type Policy ID Covered libertarian ID Covered libertarian's relationship to miguel Policy Miguel Plan Information [facility] [id number] [facility] [id number] [facility] [place] DIV [id number] [facility] DIV [id number] [place] ([facility]) P [id number] S [id number] [facility] [id number] [facility] [place] [employer] [id number] Family Depende nt [id number] [facility] [place] [employer] [id number] Family Depende nt [id number] [facility] [place] Commercial [id number] Family Depende nt [id number] [facility] O [id number] S [id number] [employer] [place] PPO 302/307 [id number] Surgeries/Procedures Procedure Description Date Indications Data Source(s) ECG ROUTINE ECG W/LEAST 12 LDS W/I&R 11/08/2020 12:00: 00 AM EST [facility] ([facility]) Hysteroscopy, With Biopsy With/Or Without D&C 09/18/20 12:00:00 AM EST [facility] ([facility]) Injection, Anesthetic Agent,Paracervical Block 020 12:00:00 AM EST [facility] ([facility]) Mammogram 07/25/2020 12:00:00 AM EDT M [facility] ([facility]) Results ID Date Data Source [id number] 11/10/2020 10:00:00 AM EST JEANNANE Name Value Range Interpretation Code Description Data Amina rce(s) Supporting Document(s) SARS coronavirus 2 RNA Not Detected [facility] This lab was ordered by [facility] and reported by [facility]. ID Date Data Source [id number] 09/18/2020 12:00:00 PM EST [facility] ([facility]) Name Value Range Interpretation Code Description Data Amina rce(s) Supporting Document(s) Gynecologic Biopsy Laboratory test result [facility] ([facility]) SPECIMEN PART------ A. Endometrial CLINICAL HX-------- N92.1 Excessive and [...] The specimen is submitted entirely as (A1). Gynecologic Biopsy Laboratory test result [facility] ([facility]) ID Date Data Source [id number] 07/09/2020 12:00:00 AM EDT [facility] Carole Jules DO Patient Name: YISEL [id number] Date of : 1975[address] Date of Exam: 07/09/2020AV Carter [id number]#: Fax: [phone] EXAM: US PELVIC COMPLETECLINICAL INFORMATION: Metrorrhagia.The latest prior for comparison is 10/06/2012.Transvesical and transvaginal was obtained.The uterus measures 8 x 4.4 x 5 .6 cm. The parenchymal echo pattern iswithin normal limits. There is fluid in the endometrial cavity. Theendometrial echocomplex is heterogeneous and irregular. It isapproximately 8 mm thick.The right ovary measures .9 x 1.7 x 1.5 cm and is within normal limits withan RI of .69.The left ovary measures 3 x 1.5 x 1.4 cm and is within normal limits withan RI of .54.The urinary bladder measures 4 x 1 x 4 cm.IMPRESSION:1. There is fluid in the endometrial cavity the etiology of which isuncertain. This needs to be correlated clinically with appropriatefollowup.2. There is heterogeneity and evidence of asymmetric endometrialechocomplex thickening. This too needs followup.3. The ovaries are within normal limits. There is an incidental dominantfollicle seen in the left ovary.Accredited by the [employer] in GynecologicalUltrasound.JUAN Aj/Rosaura you for referring YISEL HART to our office. Electronically Signed - YAMILE GARCIA DO 07/09/20 13:11 Name Value Range Interpretation Code Description Data Amina rce(s) Supporting Document(s) ID Date Data Source [id number] 07/09/2020 12:00:00 AM EDT [facility] Carole Jules DO Patient Name: YISEL [id number] Date of : 1975[address] Date of Exam: 07/09/2020AV Carter [id number]#: Fax: [phone] EXAM: US PELVIC COMPLETECLINICAL INFORMATION: Metrorrhagia.The latest prior for comparison is 10/06/2012.Transvesical and transvaginal was obtained.The uterus measures 8 x 4.4 x 5 .6 cm. The parenchymal echo pattern iswithin normal limits. There is fluid in the endometrial cavity. Theendometrial echocomplex is heterogeneous and irregular. It isapproximately 8 mm thick.The right ovary measures .9 x 1.7 x 1.5 cm and is within normal limits withan RI of .69.The left ovary measures 3 x 1.5 x 1.4 cm and is within normal limits withan RI of .54.The urinary bladder measures 4 x 1 x 4 cm.IMPRESSION:1. There is fluid in the endometrial cavity the etiology of which isuncertain. This needs to be correlated clinically with appropriatefollowup.2. There is heterogeneity and evidence of asymmetric endometrialechocomplex thickening. This too needs followup.3. The ovaries are within normal limits. There is an incidental dominantfollicle seen in the left ovary.Accredited by the [employer] in GynecologicalUltrasound.JUAN Aj/Rosaura you for referring YISEL HART to our office. Electronically Signed - YAMILE GARCIA DO 07/09/20 13:11 Name Value Range Interpretation Code Description Data Amina rce(s) Supporting Document(s) ID Date Data Source [id number] 06/25/2020 02:00:00 PM EDT [facility] ([facility]) Name Value Range Interpretation Code Description Data Amina rce(s) Supporting Document(s) Laboratory test finding (navigational concept) Laboratory test result [facility] ([facility]) ID Date Data Source [id number] 06/25/2020 02:00:00 PM EDT [facility] ([facility]) Name Value Range Interpretation Code Description Data Amina rce(s) Supporting Document(s) Pathology report final diagnosis Narrative Laboratory test result [facility] NEGATIVE FOR INTRAEPITHELIAL LESION OR M ALIGNANCY. Laboratory test finding (navigational concept) Laboratory test result [facility] ([facility]) Z01.419 Statement of adequacy [Interpretation] o f Cervical or vaginal smear or scraping by Cyto stain Laboratory test result [facility] ([facility]) Satisfactory for evaluation. Endocervic al and/or squamous metaplastic cells (endocervical component) are present. Note: Laboratory test result [facility] The Pap smear is a screening test design ed to aid in the detection of premalignant and malignant conditions of the uterine cervix. It is not a diagnostic procedure and should not be used as the sole means of detecting cervical cancer. Both false-positive and false-negative reports do occur. Travel Manager who read Cyto stain of Cervical or vaginal smear or scraping Laboratory test result [facility] Zoey Perales Diagnostic Cardiac Sonographer (ASCP) Microscopic observation [Identifier] in Unspecified sp ecimen by Other stain Laboratory test result [facility] Laboratory test finding (navigational concept) Laboratory test result [facility] ([facility]) The HPV DNA reflex criteria were not met with this specimen result therefore, no HPV testing was performed. Cytology report of Cervical or vaginal smear or scrapi ng Cyto stain.thin prep Laboratory test result [facility] ([facility]) This liquid based ThinPrep(R) pap test w as screened with the use of an image guided system. ID Date Data Source [id number] 06/25/2020 02:00:00 PM EDT [facility] Name Value Range Interpretation Code Description Data Amina rce(s) Supporting Document(s) Cytology Cervical or vaginal smear or scraping study Laboratory madelyn t result [facility] ([facility]) ID Date Data Source [id number] 06/25/2020 12:51:00 PM EDT [facility] Name Value Range Interpretation Code Description Data Amina rce(s) Supporting Document(s) IgA [Mass/volume] in Serum or Plasma 239.0 mg/dL 70-400 [facility] ([facility]) Tissue transglutaminase IgA Ab [Units/volume] in Serum Labor atory test result 0-3 [facility] ([facility]) Negative 0 - 3 Weak Positive 4 - 10 Positive >10 . Tissue Transglutaminase (tTG) has been identified as the endomysial antigen. Studies have demonstr- ated that endomysial IgA antibodies have over 99% specificity for gluten sensitive enteropathy. Performed at: RN - [facility] [address] [id number] Impregnator And Drier Helper: Caroline Jack MD, Phone: [phone] ID Date Data Source [id number] 06/25/2020 12:51:00 PM EDT [facility] ([facility]) Name Value Range Interpretation Code Description Data Amina rce(s) Supporting Document(s) Cholesterol [Mass/volume] in Serum or Plasma 120 mg/dL 131-200 [facility] ([facility]) Triglyceride [Mass/volume] in Serum or Plasma 55 mg/dL 30-150 [facility] ([facility]) Cholesterol in HDL [Mass/volume] in Serum or Plasma 57 mg/dL 35-60 [facility] ([facility]) Cholesterol in LDL [Mass/volume] in Serum or Plasma by calcu lation 52 CALC 50-159 [facility] ([facility]) ID Date Data Source [id number] 06/25/2020 12:51:00 PM EDT [facility] ([facility]) Name Value Range Interpretation Code Description Data Amina rce(s) Supporting Document(s) Thyrotropin [Units/volume] in Serum or Plasma by Detec tion limit <= 0.05 mIU/L 1.45 uIU/mL 0.36-3.74 [facility] ([facility] ) ID Date Data Source [id number] 06/25/2020 12:51:00 PM EDT [facility] ([facility]) Name Value Range Interpretation Code Description Data Amina rce(s) Supporting Document(s) Erythrocytes [#/volume] in Blood by Automated count 3.97 x10*6/UL 4.2 0-6.30 [facility] ([facility]) Leukocytes [#/volume] in Blood by Automated count 4.5 x10*3/UL 4.1-10 .9 [facility] Hematocrit [Volume Fraction] of Blood by Automated count 36.5 % 3 7.0-51.0 [facility] Hemoglobin [Mass/volume] in Blood 12.5 g/dL 12.0-18.0 [facility] MCH 31.5 pg 26.0-32.0 [facility] ([facility]) MCV 91.9 fL 80.0-97.0 [facility] ([facility]) Erythrocyte distribution width [Ratio] by Automated count 12.3 % 11.6-13.7 [facility] MCHC 34.3 g/dL 31.0-38.0 [facility] ([facility]) Platelets [#/volume] in Blood by Automated count 212 x10*3/UL 140-440 [facility] Lymph % 37.5 % 10.0-58.5 [facility] ([facility]) MPV 8.0 FL 7.8-11.0 [facility] ([facility]) Mid % 8.6 % 1.7-9.3 [facility] ([facility]) Neut % 53.9 % 37.0-92.0 [facility] ([facility]) Mid # 0.4 x10*3/UL 0.1-0.6 [facility] ([facility]) Lymph # 1.7 x10*3/UL 0.6-4.1 [facility] ([facility]) Neut # 2.4 x10*3/UL 2.0-7.8 [facility] ([facility]) ID Date Data Source [id number] 06/25/2020 12:51:00 PM EDT [facility] ([facility]) Name Value Range Interpretation Code Description Data Amina rce(s) Supporting Document(s) Glucose [Mass/volume] in Serum or Plasma 74 mg/dL 74-99 [facility] ([facility]) 100-125 mg/dL PRE-DIABETES/FASTING >126 mg/dL DIABETES/FASTING Sodium [Moles/volume] in Serum or Plasma 145 meq/L 136-145 [facility] ([facility]) Urea nitrogen [Mass/volume] in Serum or Plasma 9 mg/dL 7-18 [facility] ([facility]) Creatinine 0.9 mg/dL 0.6-1.3 [facility] Chloride [Moles/volume] in Serum or Plasma 106 meq/L 98-107 [facility] ([facility]) Potassium [Moles/volume] in Serum or Plasma 3.7 meq/L 3.5-5.1 [facility] ([facility]) Carbon dioxide, total [Moles/volume] in Serum or Plasma 30 meq/L 21 -32 [facility] ([facility]) Alkaline phosphatase isoenzyme [Units/volume] in Serum or Pl asma 70 mg/dL 46-116 [facility] Calcium [Mass/volume] in Serum or Plasma 8.6 mg/dL 8.5-10.1 [facility] Total Bilirubin 0.5 mg/dL 0.2-1.0 [facility] ([facility]) Aspartate aminotransferase [Enzymatic activity/volume] in Serum or Plasma 18 U/L 15-37 [facility] ([facility] ) Alanine aminotransferase [Enzymatic activity/volume] in Seru m or Plasma 17 U/L 12-78 [facility] Albumin [Mass/volume] in Serum or Plasma 3.7 g/dL 3.4-5.0 [facility] ([facility]) Proteinase 3 Ab [Units/volume] in Serum 6.7 g/dL 6.4-8.2 [facility] A/G Ratio 1.23 CALC 1.00-1.90 [facility]) Glomerular filtration rate/1.73 sq M pre dicted among blacks [Volume Rate/Area] in Serum or Plasma by Creatinine-based formula (MDRD) Laboratory test result [facility] <content>CHRONIC KIDNEY DISEASE STAGING PER NKF</content>
<content></content>
<content>STAGE I & II GFR >= 60 NORMAL TO MILDLY DECREASED</content>
<content>STAGE III GFR 30-59 MODERATELY DECREASED</content>
<content>STAGE IV GFR 15-29 SEVERELY DECREASED</content>
<content>STAGE V GFR <15 VERY LITTLE GFR LEFT</content>
<content>ESRD GFR <15 ON DRILLING CONTRACTOR</content>
<content></content> Glomerular filtration rate/1.73 sq M pre dicted among non-blacks [Volume Rate/Area] in Serum or Plasma by Creatinine-based formula (MDRD) Laboratory test result [facility] ([facility] ) Procedure Social History Code Duration Value Status Description Data Source(s ) Smoking 10/23/2020 12:00:00 AM EST Never Smoked Cigarettes com pleted Never Smoked Cigarettes [facility] ([facility]) Vital Signs ID Date Data Source UNK Name Value Range Interpretation Code Description Data Source(s) Body mass index (BMI) [Ratio] 25.7 kg/m2 25.7 k g/m2 [facility] ([facility]) Oxygen saturation in Arterial blood by Pulse oximetry 98 % 98 % [facility] ([facility]) RM Air Body weight 168.00 [lb_av] 168.00 [lb_av] [facility] Body height 67.75 [in_i] 67.75 [in_i] [facility] ([facility]) 5'7.75" Heart rate 70 /min 70 /min [facility] ([facility]) Diastolic blood pressure 60 mm[Hg] 60 mm[Hg] [facility] Systolic blood pressure 110 mm[Hg] 110 mm[Hg] M [facility] ([facility]) Body mass index (BMI) [Ratio] 25.1 kg/m2 25.1 k g/m2 [facility] ([facility]) Oxygen saturation in Arterial blood by Pulse oximetry 99 % 99 % [facility] ([facility]) RM Air Body weight 164.00 [lb_av] 164.00 [lb_av] [facility] Body height 67.75 [in_i] 67.75 [in_i] [facility] ([facility]) 5'7.75" Heart rate 59 /min 59 /min [facility] ([facility]) Diastolic blood pressure 60 mm[Hg] 60 mm[Hg] [facility] ([facility]) Systolic blood pressure 110 mm[Hg] 110 mm[Hg] M [facility] ([facility]) Body surface area Derived from formula 1.92 m2 1.92 m2 [facility] ([facility]) Body mass index (BMI) [Ratio] 27.2 kg/m2 27.2 k g/m2 [facility] ([facility]) Body weight 175.00 [lb_av] 175.00 [lb_av] [facility] ([facility]) Body height 67.25 [in_i] 67.25 [in_i] [facility] ([facility] 5'7.25" Diastolic blood pressure 62 mm[Hg] 62 mm[Hg] [facility] ([facility] [employer]) Systolic blood pressure 98 mm[Hg] 98 mm[Hg] [facility] [employer] Body mass index (BMI) [Ratio] 25.1 kg/m2 25.1 k g/m2 [facility] ([facility]) Oxygen saturation in Arterial blood by Pulse oximetry 99 % 99 % [facility] ([facility]) Body weight 164.00 [lb_av] 164.00 [lb_av] [facility] T ([facility]) Body height 67.75 [in_i] 67.75 [in_i] [facility] ([facility]) 5'7.75" Heart rate 56 /min 56 /min [facility] ([facility]) Diastolic blood pressure 62 mm[Hg] 62 mm[Hg] [facility] ([facility]) Systolic blood pressure 98 mm[Hg] 98 mm[Hg] [facility])
[2020-11-15] MEDS ORDERED: oxyCODONE 5MG TAB As Ordered ONE (13:13)
[2020-11-15] MEDS ORDERED: oxyCODONE 5MG TAB PO PRN (13:30)
[2020-11-15] MEDS ORDERED: MEPERIDINE INJ 25 MG/ML VIAL (J2175) IV PRN (13:30)
[2020-11-15] MEDS ORDERED: fentaNYL 100 MCG/2 ML INJECTION (J3010) IV PRN (13:30)
[2020-11-15] MEDS ORDERED: LR 1,000 ML IV SCH ×2 (13:30)
[2020-11-15] MEDS ORDERED: NORCO, ANEXSIA 5/325MG TABLET (HYDROcodone/ACETAMINOPHEN) PO PRN (13:30)
[2020-11-15] MEDS ORDERED: METOCLOPRAMIDE INJ 10MG/2ML VIAL (J2765 PER 1) IV PRN (13:30)
[2020-11-15] MEDS ORDERED: ONDANSETRON 4MG/2ML VIAL IV PRN (13:30)
[2020-11-15] MEDS ORDERED: IBUPROFEN 600MG TAB PO PRN (13:30)
--- NOTE | 2020-11-15 13:58 | RO ---
OPERATIVE NOTE DATE OF OPERATION: 11/15/2020 PREOPERATIVE DIAGNOSIS/INDICATION FOR SURGERY: Bleeding and pain. POSTOPERATIVE DIAGNOSIS: Bleeding and pain but with addition of a small right labial lesion, question dysplasia. PROCEDURE: Dilatation and curettage (D and C), hysteroscopy, ablation with Novasure device but also removal of that labial lesion. SURGEON: Dr. Rooney WOOD TECHNOLOGIST: None. ANESTHESIA: Laryngeal mask airway (LMA). BRIEF DESCRIPTION OF PROCEDURE AND FINDINGS: Padmini was brought to the operating room, where sufficient LMA anesthesia was induced. She was prepped, draped, and positioned in the usual sterile fashion. Cervix was grasped with a single-tooth tenacula. As we were manipulating the retractor so we could see the cervix, the labia moved in a certain position, where a pedunculated lesion was noted over the distal aspect of the labia. There was no corresponding V shape or other indication in the labia that this was a result of obstetric injury and scarring, and with the appearance of the raised lesion there it certainly lifted the question in my mind of whether or not this was actually dysplastic. Of course, it is possible that it is just a skin tag, but it was pigmented, as her labia are, and because it was raised in that fashion, we decided to take that off and send it for pathology, just to make sure that we are not missing a dysplastic lesion not notable in the office because it just laid down against the tissues. At this point, we were still sounding the uterus. We sounded to 8 with a cavity length of 4. We subsequently got cavity width of 3.5, but at this point we only had length of 4, and the cervix was carefully dilated, the hysteroscope placed. The scope lifted up a little bit of the endometrium, consisted with her report of heavy bleeding, but there were no isolated polyps. There was a normal endometrial contour, normal ostia, and so curettage was carried out just to thin out some of that overgrowth, and, of course, that was sent for pathology, and then the Novasure ablative device was placed with a little bit more effort than with some. The patient's cervix was a little bit stiffer than some, but with care we were able to place it and, again, had a normal test with no evidence of perforation, just as we had had when we scoped her, and we carried out an uncomplicated endometrial ablation, again, length 4, width 3.5. Following completion of the ablation, there was no evidence of complication. We went ahead and just took a 4-0 Vicryl, tied off the base of that pedunculated lesion and cut it off so that we could send the lesion for pathologic evaluation just to be sure. Then the procedure was ended. ESTIMATED BLOOD LOSS FOR THE PROCEDURE: Maybe 1 mL. FLUID REPLACEMENT: Crystalloid. COMPLICATIONS: None. CONDITION AND DISPOSITION: Padmini tolerated the procedure well and was recovering in the recovery room in good condition.
[2020-11-15 15:00] VITALS: BP 113/74
== END 2020-11-15 15:10 | disposition home or self-care (01) ==
LOC: M SDC 10:11
PROVIDERS: ATTEND Obstetrics & Gynecology
DX: N93.9 Abnormal uterine and vaginal bleeding, unspecified (principal); R10.2 Pelvic and perineal pain; D18.09 Hemangioma of other sites; J45.909 Unspecified asthma, uncomplicated; Z88.0 Allergy status to penicillin; Z88.1 Allergy status to other antibiotic agents; Z91.010 Allergy to peanuts
CPT/HCPCS: 58356; 88305; J1100; J1885; J2250; J2405; J3010

== ENCOUNTER → 2022-12-22 | Outpatient (REF) | payer BC, OTHER ==
[~2022-12-22] MED LIST changes: -KETOROLAC 60MG 2ML VIAL As Ordered ONE; -LIDOCAINE 2% 100MG/5ML SDV (FOR ANES.) As Ordered ONE; -LR 1,000 ML IV ONE; -MIDAZOLAM INJ 2MG/2ML VIAL (J2250 PER 1MG) As Ordered ONE; -ONDANSETRON 4MG/2ML VIAL As Ordered ONE; -dexameTHASONE 4 MG/ML 1ML VIAL (J1100 PER 1MG) As Ordered ONE; -fentaNYL 100 MCG/2 ML INJECTION (J3010) As Ordered ONE; -propofoL 200 MG/20 ML VIAL As Ordered ONE
== END ==
LOC: M LAB REF 16:37
PROVIDERS: ATTEND Internal Medicine
DX: N91.2 Amenorrhea, unspecified (principal); N95.1 Menopausal and female climacteric states; N93.8 Other specified abnormal uterine and vaginal bleeding

== ENCOUNTER → 2022-12-31 | Outpatient (CLI) | payer BC, OTHER | LOC: M PLAIMG 09:04 | PROVIDERS: ATTEND Internal Medicine | DX: R10.32 Left lower quadrant pain (principal) ==

== ENCOUNTER → 2023-02-12 | Outpatient (CLI) | payer BC, OTHER | LOC: M RAD 10:53 | PROVIDERS: ATTEND Internal Medicine | DX: R10.2 Pelvic and perineal pain (principal); N83.292 Other ovarian cyst, left side ==

== ENCOUNTER 2023-03-10 09:01 | Day surgery (SDC) | payer BC, OTHER ==
[~2023-03-10] VITALS: Ht 172.7 cm; Wt 76.7 kg
[~2023-03-10 09:01] MED LIST changes: +NS 1,000 ML IV ONE
[2023-03-10] MEDS ORDERED: propofoL 200 MG/20 ML VIAL As Ordered ONE (10:56)
[2023-03-10] MEDS ORDERED: LIDOCAINE 2% 100MG/5ML SDV (FOR ANES.) As Ordered ONE (10:56)
[2023-03-10 11:46] VITALS: BP 130/63
== END 2023-03-10 11:58 | disposition home or self-care (01) ==
LOC: M OPP 09:01
PROVIDERS: ATTEND Internal Medicine Gastroenterology
DX: Z12.11 Encounter for screening for malignant neoplasm of colon (principal); Z80.0 Family history of malignant neoplasm of digestive organs; K52.832 Lymphocytic colitis; K64.4 Residual hemorrhoidal skin tags; K64.8 Other hemorrhoids; Z88.1 Allergy status to other antibiotic agents; Z88.8 Allergy status to other drugs, medicaments and biological substances; Z91.018 Allergy to other foods

== ENCOUNTER → 2023-03-25 | Outpatient (REF) | payer BC, OTHER ==
[~2023-03-25] MED LIST changes: -NS 1,000 ML IV ONE
== END ==
LOC: M LAB REF 16:32
PROVIDERS: ATTEND Internal Medicine
DX: R31.9 Hematuria, unspecified (principal)

== ENCOUNTER → 2023-06-01 | Outpatient (REF) | payer OTHER, BC | LOC: M SFHCWAGY 13:10 | PROVIDERS: ATTEND Obstetrics & Gynecology | DX: Z12.4 Encounter for screening for malignant neoplasm of cervix (principal); R87.610 Atypical squamous cells of undetermined significance on cytologic smear of cervix (ASC-US) | CPT/HCPCS: 87624; G0123 ==

== ENCOUNTER → 2024-04-27 | Outpatient (REF) | payer OTHER, BC ==
[2024-04-27 21:07] LABS: APPEARANCE, URINE CLOUDY (CLEAR); BACTERIA, URINE AUTO 1+ (NEGATIVE); BILIRUBIN, URINE AUTO NEGATIVE (NEGATIVE); BLOOD, URINE BLOOD NEGATIVE (NEGATIVE); CALCIUM OXALATE CRYSTALS SMALL; COLOR, URINE YELLOW (YELLOW); GLUCOSE, URINE (UA) AUTO NEGATIVE (NEGATIVE); KETONE, URINE AUTO NEGATIVE (NEGATIVE); LEUKOCYTE ESTERASE, URINE AUTO 3+ (NEGATIVE); MUCUS, URINE SMALL (NEGATIVE); NITRITE, URINE AUTO NEGATIVE (NEGATIVE); PROTEIN, URINE AUTO 2+ mg/dL (NEGATIVE); RBC, URINE AUTO 41 /HPF (0-3); SPECIFIC GRAVITY URINE AUTO 1.021 (1.002-1.035); SQUAMOUS EPITHELIAL CELL UR AU 7 /HPF (0-6); TRANSITIONAL EPITHELIAL AUTO 2 /HPF; UROBILINOGEN, URINE AUTO 0.2 mg/dL (0.0-2.0); WBC, URINE AUTO TNTC /HPF (0-3)
== END ==
LOC: M LAB REF 20:34
PROVIDERS: ATTEND Physician Assistant
DX: N39.0 Urinary tract infection, site not specified (principal)

== ENCOUNTER → 2024-05-04 | Outpatient (REF) | payer OTHER, BC ==
[2024-05-08 17:02] LABS: LYME TOTAL ANTIBODY CIA <= 0.90 Index (<=0.90)
[2024-05-09 16:07] LABS: ANA PATTERN Nuclear, Speckled (NEGATIVE); ANA PATTERN 2 Cytoplasmic; ANA SCREEN, IFA POSITIVE (NEGATIVE)
[2024-05-09 23:53] LABS: CYCLIC CITRULLINATED PEPTIDE < 16 UNITS (<20)
== END ==
LOC: M LAB REF 16:36
PROVIDERS: ATTEND Internal Medicine
DX: M25.50 Pain in unspecified joint (principal)

== ENCOUNTER → 2024-06-14 | Outpatient (REF) | payer OTHER, BC ==
[2024-06-14 17:21] LABS: COMPLEMENT C3 92.2 MG/DL (90.0-170.0); COMPLEMENT C4 21.3 MG/DL (12-36)
== END ==
LOC: M LAB REF 16:23
PROVIDERS: ATTEND Internal Medicine
DX: M25.50 Pain in unspecified joint (principal)

== ENCOUNTER → 2024-06-15 | Outpatient (REF) | payer OTHER, BC ==
[2024-06-15 13:00] LABS: APPEARANCE, URINE CLOUDY (CLEAR); BACTERIA, URINE AUTO 1+ (NEGATIVE); BILIRUBIN, URINE AUTO NEGATIVE (NEGATIVE); BLOOD, URINE BLOOD 3+ (NEGATIVE); CALCIUM OXALATE CRYSTALS SMALL; COLOR, URINE YELLOW (YELLOW); GLUCOSE, URINE (UA) AUTO NEGATIVE (NEGATIVE); KETONE, URINE AUTO NEGATIVE (NEGATIVE); LEUKOCYTE ESTERASE, URINE AUTO 3+ (NEGATIVE); MUCUS, URINE SMALL (NEGATIVE); NITRITE, URINE AUTO NEGATIVE (NEGATIVE); PROTEIN, URINE AUTO 2+ mg/dL (NEGATIVE); RBC, URINE AUTO 95 /HPF (0-3); SPECIFIC GRAVITY URINE AUTO 1.019 (1.002-1.035); SQUAMOUS EPITHELIAL CELL UR AU 1 /HPF (0-6); UROBILINOGEN, URINE AUTO 0.2 mg/dL (0.0-2.0); WBC, URINE AUTO TNTC /HPF (0-3)
== END ==
LOC: M LAB REF 12:12
PROVIDERS: ATTEND Physician Assistant
DX: N39.0 Urinary tract infection, site not specified (principal)

== ENCOUNTER → 2025-07-06 | Outpatient (REF) | payer OTHER, BC ==
[2025-07-06 19:11] LABS: APPEARANCE, URINE CLEAR (CLEAR); BACTERIA, URINE AUTO 2+ (NEGATIVE); BILIRUBIN, URINE AUTO NEGATIVE (NEGATIVE); BLOOD, URINE BLOOD NEGATIVE (NEGATIVE); GLUCOSE, URINE (UA) AUTO NEGATIVE (NEGATIVE); KETONE, URINE AUTO NEGATIVE (NEGATIVE); LEUKOCYTE ESTERASE, URINE AUTO 1+ (NEGATIVE); MUCUS, URINE SMALL (NEGATIVE); NITRITE, URINE AUTO NEGATIVE (NEGATIVE); PROTEIN, URINE AUTO NEGATIVE (NEGATIVE); RBC, URINE AUTO 0 /HPF (0-3); SPECIFIC GRAVITY URINE AUTO 1.012 (1.002-1.035); SQUAMOUS EPITHELIAL CELL UR AU 5 /HPF (0-6); UROBILINOGEN, URINE AUTO 0.2 mg/dL (0.0-2.0); WBC, URINE AUTO 4 /HPF (0-3)
== END ==
LOC: M LAB REF 17:23
PROVIDERS: ATTEND Physician Assistant Medical
DX: N39.0 Urinary tract infection, site not specified (principal)

== ENCOUNTER → 2025-09-29 | Outpatient (REF) | payer OTHER, BC ==
[2025-09-29 17:27] LABS: APPEARANCE, URINE CLEAR (CLEAR); BACTERIA, URINE AUTO NEGATIVE (NEGATIVE); BILIRUBIN, URINE AUTO NEGATIVE (NEGATIVE); BLOOD, URINE BLOOD NEGATIVE (NEGATIVE); GLUCOSE, URINE (UA) AUTO NEGATIVE (NEGATIVE); KETONE, URINE AUTO NEGATIVE (NEGATIVE); LEUKOCYTE ESTERASE, URINE AUTO 1+ (NEGATIVE); NITRITE, URINE AUTO NEGATIVE (NEGATIVE); PROTEIN, URINE AUTO NEGATIVE (NEGATIVE); RBC, URINE AUTO 2 /HPF (0-3); SPECIFIC GRAVITY URINE AUTO 1.014 (1.002-1.035); SQUAMOUS EPITHELIAL CELL UR AU 5 /HPF (0-6); UROBILINOGEN, URINE AUTO 0.2 mg/dL (0.0-2.0); WBC, URINE AUTO 2 /HPF (0-3)
== END ==
LOC: M LAB REF 16:48
PROVIDERS: ATTEND Physician Assistant
DX: N39.0 Urinary tract infection, site not specified (principal)